=== PATIENT | male | born 1985 | race Native Hawaiian/Other Pacific Islander ===

== ENCOUNTER 2017-12-20 13:53 | Emergency (ER) | payer OTHER ==
[2017-12-20 14:00] VITALS: BMI 27.3
[2017-12-20 14:08] VITALS: TEMP 98.5
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
[2017-12-20 16:47] VITALS: RESP 16; O2SAT 100
[2017-12-20 16:48] VITALS: BP 132/81; PULSE 80
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
== END 2017-12-20 16:15 | disposition home or self-care (01) ==
LOC: ED 13:53
DX: M25.521 Pain in right elbow (principal); V43.52XA Car driver injured in collision with other type car in traffic accident, initial encounter; Y92.414 Local residential or business street as the place of occurrence of the external cause